=== PATIENT | male | born 1980 | race Caucasian/White ===

== ENCOUNTER 2019-11-21 15:58 | Emergency (ER) | payer OTHER ==
[~2019-11-21] VITALS: Ht 175.3 cm; Wt 113.4 kg
[2019-11-21 16:32] VITALS: BP 150/80
--- NOTE | 2019-11-21 16:43 | NUR ---
PT AMBULATED TO BED 6.
--- NOTE | 2019-11-21 16:48 | NUR ---
39 Y/O MALE C/O RIGHT UPPER/MID CALF PAIN THAT WAS AGRAVATED DURING PHYSICAL THERAPY TODAY. PT STATES CERTIFIED [facility] PATROLLER TOLD PT TO GO TO THE ER PT HAS A BLOOD CLOT IN THE RIGHT CALF THAT WAS DIAGNOSED 09/06/2019. PT STATES UPPER/MID RIGHT CALF PAIN IS 5/10 AND FEELS LIKE A CRAMPING PAIN. 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 DENIES N/V/D; SKIN IS PINK/WARM/DRY; AAOX4 WITH EVEN AND STEADY GAIT; PT DENIES ANY FEVER, CP, SOB, OR COUGH AT THIS TIME; VSS; PATIENT POSITIONED FOR COMFORT; HOB ELEVATED; BEDRAILS UP X1; BED DOWN AND LOCKED. MEDICAL HX: BLOOD CLOT GROIN/RIGHT CALF BLOOD CLOT/LEFT FRONTAL LOBE SKIN CANCER/ NKA
--- NOTE | 2019-11-21 17:10 | NUR ---
DR BHAT AT BEDSIDE EXAMINING PT
--- NOTE | 2019-11-21 17:29 | NUR ---
US AT BEDSIDE
[2019-11-21 18:47] VITALS: BP 110/66
--- NOTE | 2019-11-21 18:48 | NUR ---
Patient discharged with v/s stable. Written and verbal after care instructions given and explained. Patient verbalized understanding. Ambulatory with steady gait. All questions addressed prior to discharge. Advised to follow up with PMD. ARMBAND REMOVED.
== END 2019-11-21 18:48 | disposition home or self-care (01) ==
LOC: MED 15:58
DX: S86.811A Strain of other muscle(s) and tendon(s) at lower leg level, right leg, initial encounter (principal); I82.491 Acute embolism and thrombosis of other specified deep vein of right lower extremity; I10 Essential (primary) hypertension; X58.XXXA Exposure to other specified factors, initial encounter; Y93.89 Activity, other specified; Y92.89 Other specified places as the place of occurrence of the external cause; Y99.8 Other external cause status
CPT/HCPCS: 93971; 99284; Q0092